=== PATIENT | male | born 1965 ===

== ENCOUNTER 2017-01-21 10:32 | Emergency (ER) | payer SELFPAY ==
--- NOTE | 2017-01-21 14:34 | ED CLINICAL REPORT ---
Clinical Report - Physicians/Mid Levels [facility] [address] [place] [address] 01/21/2017 10:34 Patient: MARK GILL Time Seen: 11:04. Arrived- By private vehicle. Historian- patient. HISTORY OF PRESENT ILLNESS Chief Complaint: BOIL and TENDER AREA. This started about 8 days ago and is still present. It was gradual in onset and has been constant. It is described as painful. It has been located on the right lower extremity. ([facility]. He says that he developed these lesions at that time. He believes some of his [facility] mates have MRSA.). REVIEW OF SYSTEMS No chills, fever, sweats, chest pain or cough. No difficulty breathing, palpitations, abdominal pain, constipation or diarrhea. No nausea, vomiting or urinary problems. All systems otherwise negative, except as recorded above. PAST HISTORY PCP - [facility]. SOCIAL HISTORY Former smoker, end date 1986. 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 FAMILY HISTORY Denies family medical history. ADDITIONAL NOTES The nursing notes have been reviewed. PHYSICAL EXAM Vital Signs: 01/21/2017 10:55 BP: 121/96. HR: 96. RR: 18. O2 saturation: 99%. Temp: 98.6 F. Have been reviewed. Appearance: Alert. Eyes: Pupils equal, round and reactive to light. ENT: Pharynx normal. Neck: Neck supple. CVS: Normal heart rate and rhythm. Heart sounds normal. Respiratory: Breath sounds normal. Abdomen: Nontender. No organomegaly. Skin: Multiple medium abscesses with fluctuance, pointing, drainage and cellulitis to right leg. Extremities: No lower extremity edema. No calf tenderness. LABS, X-RAYS, AND EKG Laboratory Tests: CBC w Diff: (JOVANNI: 01/21/2017 12:00) ( MsgRcvd 01/21/2017 12:20) Final results Test Result Flag Units (Reference) WHITE BLOOD COUNT 11.3 K/uL (4.5-11.5) RED BLOOD COUNT 4.59 M/uL (4.50-5.90) HEMOGLOBIN 12.9 L gm/dL (13.5-17.5) HEMATOCRIT 38.6 L % (41.0-53.0) MEAN CELL VOLUME 84 fL (80-100) MEAN CORPUSCULAR HGB 28 pg (26-34) MEAN CORPUSCULAR HGB CONC 33 g/dL (31-37) RED CELL DISTRIBUTION WIDTH 15.2 H % (11.6-14.8) PLATELET COUNT 343 K/uL (150-400) NEUTROPHIL % 79.7 H % (50-75) LYMPH % 14.3 L % (25-40) MONO % 5.1 % (3-14) EOSINOPHIL % 0.5 % (0-4) BASOPHIL % 0.4 % (0-2) CMP: (JOVANNI: 01/21/2017 12:00) ( MsgRcvd 01/21/2017 12:24) Final results Test Result Flag Units (Reference) GLUCOSE 109 mg/dL (70-110) BUN 8 mg/dL (7-18) CREATININE 0.9 mg/dL (0.6-1.3) Estimated GFR >60 mL/min Estimated GFR- >60 mL/min Note: Persistent reduction over 3 months in eGFR<60 mL/min/1.73 m2 defines CKD. Patients with eGFR values>=60 mL/min/1.73 m2 may also have CKD if evidence ofpersistent proteinuria. Additional information may be foundat www.kidney.org. SODIUM 140 mmol/L (136-145) POTASSIUM 3.9 mmol/L (3.5-5.1) CHLORIDE 106 mmol/L (98-107) CARBON DIOXIDE 23 mmol/L (21-32) CALCIUM 9.2 mg/dL (8.5-10.1) TOTAL PROTEIN 7.3 g/dL (6.4-8.2) ALBUMIN 3.2 L g/dL (3.3-5.0) BILIRUBIN, TOTAL 0.3 mg/dL (0.0-1.0) ALKALINE PHOSPHATASE 89 U/L (46-116) AST (SGOT) 17 U/L (15-37) ALT (SGPT) 30 U/L (12-78) . PROGRESS AND PROCEDURES Incision & Drainage of Abscess: Time-out completed immediately before the procedure. The abscess is located in the right leg. The risks of the procedure, benefits and alternatives were explained. Consent was obtained. Local anesthesia provided using 1% lidocaine with epi. Skin cleansed with Betadine. The abscess was incised with a #11 surgical blade. A moderate amount of pus was drained. Cavity was irrigated with saline and packed with gauze. Sample obtained for cultures. A dressing was applied. Incision & Drainage of Abscess #2: Time-out completed immediately before the procedure. The abscess is located in the right leg. The risks of the procedure, benefits and alternatives were explained. Consent was obtained. Anesthesia provided using 1% lidocaine with epi. Skin cleansed with Betadine. The abscess was incised with a #11 surgical blade. A moderate amount of pus was drained. Cavity was irrigated with saline and packed with gauze. A dressing was applied. Patient/family counseled. Old medical records reviewed. Disposition: Discharged. Condition: stable. CLINICAL IMPRESSION Cellulitis of the right lower leg. Multiple deep abscesses to the right lower extremity with incision and drainage. INSTRUCTIONS Warnings: Further evaluation is necessary. GENERAL WARNINGS: Return or contact your physician immediately if your condition worsens or changes unexpectedly, if not improving as expected, or if other problems arise. Prescription Medications: Bactrim DS 800 mg / 160 mg: take 2 tablets orally every 12 hours for 10 days. No refill. Substitution is permissible. Understanding of the discharge instructions verbalized by patient. Follow-up with: [facility], , , [address], [place] [address] Follow up tomorrow for wound check and packing removal. (Electronically signed by Patricio Fernandez MD 01/21/2017 21:06)
--- NOTE | 2017-01-21 14:34 | ED NURSING NOTES ---
Clinical Report - Nurses [facility] [address] [place] [address] 01/21/2017 10:34 Patient: MARK GILL TRIAGE Triage time 10:56 Jan 21 2017. Acuity: LEVEL 3. Chief Complaint: INJURY TO THE RIGHT LEG. JUWAN COMA SCORE: [place] Coma Scale: 15- eyes open spontaneously (4); best verbal response- oriented x 4 (5); best motor response- obeys commands (6). --11:01 Jaky Carroll R.N. 10:55 01/21/17. BP: 121/96. HR: 96. RR: 18. O2 saturation: 99%. Temp: 98.6 F. Pain level now 05/29. --11:01 Jaky Carroll R.N. Weight: 89.3 kg stated. Height/Length: 72 inches Per Patient. BMI: 26.7. --11:01 Jaky Carroll R.N. Medications None. --10:59 Jaky Carroll R.N. Allergies No Known Drug Allergy. --10:59 Jaky Carroll R.N. History Arrived by private vehicle. Historian: patient. Primary physician (Julián Pharm). This occurred (8 days ago). ( Patient got right calf abscesses [facility] to get them [facility] clinic and they sent him here for treatment.). He has had moderate trouble walking. The patient has been limping when trying to walk. No numbness, tingling, weakness, neck pain or back pain. 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 PAST MEDICAL HX: Tetanus status: unknown. SOCIAL HX: Former smoker, end date 1986. History of drug use: heroin. (Quit a couple weeks ago). No alcohol use. SELF HARM ASSESSMENT: A self harm assessment was performed. The patient answered "no" to the question "Have you recently felt down, depressed, or hopeless?" and "Do you have thoughts of harming or killing yourself?". FALL RISK ASSESSMENT: Fall risk assessment completed. No fall risk identified. NUTRITIONAL RISK ASSESSMENT: The nutritional risk assessment revealed no deficiencies. FUNCTIONAL ASSESSMENT: Functional assessment: no impairments noted. LEARNING NEEDS ASSESSMENT: The learning needs assessment revealed no barriers. ABUSE ASSESSMENT: Abuse assessment: (yes) The patient was asked "Do you feel safe in your home?". SKIN INTEGRITY ASSESSMENT: Skin integrity risk assessment completed. No skin integrity risk identified. --11: Jaky Carroll R.N. PROBLEMS: Chest Pain. Gastroesophageal Reflux Disease. Dental Pain. Fractured Metacarpal. --10:59 Jaky Carroll R.N. ADDITIONAL SURGERIES: Facial repair. --:59 Jaky Carroll R.N. Interventions ID band on patient. --11: Jaky Carroll R.N. PHYSICAL ASSESSMENT Ambulatory to room. GENERAL / NEURO / PSYCH: Oriented X 4. Appears in pain. EXTREMITIES: Capillary refill is less than 2 seconds in the extremities. Extremity pulses are within normal limits. Extremities exhibit normal ROM. Pain with weight bearing. Neuro-vascular status intact to the extremity. Right leg: tenderness, swelling, erythema, ecchymosis and multiple puncture wounds. Limited weight bearing secondary to pain. SKIN: Skin is warm and dry. ( Two open lesions 50 cent piece in size along with redness and swelling around the site.). --11:03 Jaky Carroll R.N. NURSING PROGRESS NOTES The initial plan of care for this patient includes an assessment with efforts to address patient positioning and appropriate ambient lighting. Extremity elevated. Patient gowned. Reassurance given. Call light placed in reach. Side rails up x 1. Bed placed in lowest position. Brakes of bed on. --11:03 Jaky Carroll R.N. 11:23 01/21/2017 Site #1 started via IV in the left wrist with an 20g angiocath, with aseptic technique and good blood return; one attempt. Saline lock flushed with 10 mL saline (Blood not drawing from line purple top collected.). --11:28 Jaky Carroll R.N. DISPOSITION / DISCHARGE 14:43 01/21/2017 Site #1 removed upon discharge. Catheter intact. Pressure dressing applied. --14:43 Jaky Carroll R.N. Departure time: 14:43 Jan 21 2017. Condition at departure: improved. No learning barriers present. Discharge instructions provided and reviewed with the patient. Reviewed warnings. Reviewed medication(s). Treatments reviewed. Reviewed referrals. Patient verbalized understanding. Written instructions provided in Portuguese. The patient was discharged home. He left the Emergency Department ambulatory and via private vehicle. Subsea Engineer driving. --14:43 Jaky Carroll R.N. 14:41 01/21/17. BP: 124/90. HR: 77. RR: 18. O2 saturation: 100%. Temp: 98.6 F. Pain level now 12/27. --14:43 Jaky Carroll R.N. Locked/Released at 01/21/2017 19:11 by Jaky Carroll R.N.
--- NOTE | 2017-01-21 14:34 | ED CLINICAL REPORT ---
Clinical Report - Physicians/Mid Levels [facility] [address] [place] [address] 01/21/2017 10:34 Patient: MARK GILL Time Seen: 11:04. Arrived- By private vehicle. Historian- patient. HISTORY OF PRESENT ILLNESS Chief Complaint: BOIL and TENDER AREA. This started about 8 days ago and is still present. It was gradual in onset and has been constant. It is described as painful. It has been located on the right lower extremity. (Patient was recently incarcerated in residential. He says that he developed these lesions at that time. He believes some of his residential mates have MRSA.). REVIEW OF SYSTEMS No chills, fever, sweats, chest pain or cough. No difficulty breathing, palpitations, abdominal pain, constipation or diarrhea. No nausea, vomiting or urinary problems. All systems otherwise negative, except as recorded above. PAST HISTORY PCP - [facility]. SOCIAL HISTORY Former smoker, end date 1986. 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 FAMILY HISTORY Denies family medical history. ADDITIONAL NOTES The nursing notes have been reviewed. PHYSICAL EXAM Vital Signs: 01/21/2017 10:55 BP: 121/96. HR: 96. RR: 18. O2 saturation: 99%. Temp: 98.6 F. Have been reviewed. Appearance: Alert. Eyes: Pupils equal, round and reactive to light. ENT: Pharynx normal. Neck: Neck supple. CVS: Normal heart rate and rhythm. Heart sounds normal. Respiratory: Breath sounds normal. Abdomen: Nontender. No organomegaly. Skin: Multiple medium abscesses with fluctuance, pointing, drainage and cellulitis to right leg. Extremities: No lower extremity edema. No calf tenderness. LABS, X-RAYS, AND EKG Laboratory Tests: CBC w Diff: (JOVANNI: 01/21/2017 12:00) ( MsgRcvd 01/21/2017 12:20) Final results Test Result Flag Units (Reference) WHITE BLOOD COUNT 11.3 K/uL (4.5-11.5) RED BLOOD COUNT 4.59 M/uL (4.50-5.90) HEMOGLOBIN 12.9 L gm/dL (13.5-17.5) HEMATOCRIT 38.6 L % (41.0-53.0) MEAN CELL VOLUME 84 fL (80-100) MEAN CORPUSCULAR HGB 28 pg (26-34) MEAN CORPUSCULAR HGB CONC 33 g/dL (31-37) RED CELL DISTRIBUTION WIDTH 15.2 H % (11.6-14.8) PLATELET COUNT 343 K/uL (150-400) NEUTROPHIL % 79.7 H % (50-75) LYMPH % 14.3 L % (25-40) MONO % 5.1 % (3-14) EOSINOPHIL % 0.5 % (0-4) BASOPHIL % 0.4 % (0-2) CMP: (JOVANNI: 01/21/2017 12:00) ( MsgRcvd 01/21/2017 12:24) Final results Test Result Flag Units (Reference) GLUCOSE 109 mg/dL (70-110) BUN 8 mg/dL (7-18) CREATININE 0.9 mg/dL (0.6-1.3) Estimated GFR >60 mL/min Estimated GFR- >60 mL/min Note: Persistent reduction over 3 months in eGFR<60 mL/min/1.73 m2 defines CKD. Patients with eGFR values>=60 mL/min/1.73 m2 may also have CKD if evidence ofpersistent proteinuria. Additional information may be foundat www.kidney.org. SODIUM 140 mmol/L (136-145) POTASSIUM 3.9 mmol/L (3.5-5.1) CHLORIDE 106 mmol/L (98-107) CARBON DIOXIDE 23 mmol/L (21-32) CALCIUM 9.2 mg/dL (8.5-10.1) TOTAL PROTEIN 7.3 g/dL (6.4-8.2) ALBUMIN 3.2 L g/dL (3.3-5.0) BILIRUBIN, TOTAL 0.3 mg/dL (0.0-1.0) ALKALINE PHOSPHATASE 89 U/L (46-116) AST (SGOT) 17 U/L (15-37) ALT (SGPT) 30 U/L (12-78) . PROGRESS AND PROCEDURES Incision & Drainage of Abscess: Time-out completed immediately before the procedure. The abscess is located in the right leg. The risks of the procedure, benefits and alternatives were explained. Consent was obtained. Local anesthesia provided using 1% lidocaine with epi. Skin cleansed with Betadine. The abscess was incised with a #11 surgical blade. A moderate amount of pus was drained. Cavity was irrigated with saline and packed with gauze. Sample obtained for cultures. A dressing was applied. Incision & Drainage of Abscess #2: Time-out completed immediately before the procedure. The abscess is located in the right leg. The risks of the procedure, benefits and alternatives were explained. Consent was obtained. Anesthesia provided using 1% lidocaine with epi. Skin cleansed with Betadine. The abscess was incised with a #11 surgical blade. A moderate amount of pus was drained. Cavity was irrigated with saline and packed with gauze. A dressing was applied. Patient/family counseled. Old medical records reviewed. Disposition: Discharged. Condition: stable. CLINICAL IMPRESSION Cellulitis of the right lower leg. Multiple deep abscesses to the right lower extremity with incision and drainage. INSTRUCTIONS Warnings: Further evaluation is necessary. GENERAL WARNINGS: Return or contact your physician immediately if your condition worsens or changes unexpectedly, if not improving as expected, or if other problems arise. Prescription Medications: Bactrim DS 800 mg / 160 mg: take 2 tablets orally every 12 hours for 10 days. No refill. Substitution is permissible. Understanding of the discharge instructions verbalized by patient. Follow-up with: [facility], , , [address] [place], [place] [address] Follow up tomorrow for wound check and packing removal. (Electronically signed by Patricio Fernandez MD 01/21/2017 21:06)
--- NOTE | 2017-01-21 14:34 | ED NURSING NOTES ---
Clinical Report - Nurses [facility] [address] [place] [address] 01/21/2017 10:34 Patient: MARK GILL TRIAGE Triage time 10:56 Jan 21 2017. Acuity: LEVEL 3. Chief Complaint: INJURY TO THE RIGHT LEG. JUWAN COMA SCORE: [place] Coma Scale: 15- eyes open spontaneously (4); best verbal response- oriented x 4 (5); best motor response- obeys commands (6). --11:01 Jaky Carroll R.N. 10:55 01/21/17. BP: 121/96. HR: 96. RR: 18. O2 saturation: 99%. Temp: 98.6 F. Pain level now 05/29. --11:01 Jaky Carroll R.N. Weight: 89.3 kg stated. Height/Length: 72 inches Per Patient. BMI: 26.7. --11:01 Jaky Carroll R.N. Medications None. --10:59 Jaky Carroll R.N. Allergies No Known Drug Allergy. --10:59 Jaky Carroll R.N. History Arrived by private vehicle. Historian: patient. Primary physician (Julián Pharm). This occurred (8 days ago). ( Patient got right calf abscesses [facility] get them [facility] went [facility] he [facility] clinic and they sent him here for treatment.). He has had moderate trouble walking. The patient has been limping when trying to walk. No numbness, tingling, weakness, neck pain or back pain. 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 PAST MEDICAL HX: Tetanus status: unknown. SOCIAL HX: Former smoker, end date 1986. History of drug use: heroin. (Quit a couple weeks ago). No alcohol use. SELF HARM ASSESSMENT: A self harm assessment was performed. The patient answered "no" to the question "Have you recently felt down, depressed, or hopeless?" and "Do you have thoughts of harming or killing yourself?". FALL RISK ASSESSMENT: Fall risk assessment completed. No fall risk identified. NUTRITIONAL RISK ASSESSMENT: The nutritional risk assessment revealed no deficiencies. FUNCTIONAL ASSESSMENT: Functional assessment: no impairments noted. LEARNING NEEDS ASSESSMENT: The learning needs assessment revealed no barriers. ABUSE ASSESSMENT: Abuse assessment: (yes) The patient was asked "Do you feel safe in your home?". SKIN INTEGRITY ASSESSMENT: Skin integrity risk assessment completed. No skin integrity risk identified. --11: Jaky Carroll R.N. PROBLEMS: Chest Pain. Gastroesophageal Reflux Disease. Dental Pain. Fractured Metacarpal. --10:59 Jaky aCrroll R.N. ADDITIONAL SURGERIES: Facial repair. --:59 Jaky Carroll R.N. Interventions ID band on patient. --11: Jaky Carroll R.N. PHYSICAL ASSESSMENT Ambulatory to room. GENERAL / NEURO / PSYCH: Oriented X 4. Appears in pain. EXTREMITIES: Capillary refill is less than 2 seconds in the extremities. Extremity pulses are within normal limits. Extremities exhibit normal ROM. Pain with weight bearing. Neuro-vascular status intact to the extremity. Right leg: tenderness, swelling, erythema, ecchymosis and multiple puncture wounds. Limited weight bearing secondary to pain. SKIN: Skin is warm and dry. ( Two open lesions 50 cent piece in size along with redness and swelling around the site.). --11:03 Jaky Carroll R.N. NURSING PROGRESS NOTES The initial plan of care for this patient includes an assessment with efforts to address patient positioning and appropriate ambient lighting. Extremity elevated. Patient gowned. Reassurance given. Call light placed in reach. Side rails up x 1. Bed placed in lowest position. Brakes of bed on. --11:03 Jaky Carroll R.N. 11:23 01/21/2017 Site #1 started via IV in the left wrist with an 20g angiocath, with aseptic technique and good blood return; one attempt. Saline lock flushed with 10 mL saline (Blood not drawing from line purple top collected.). --11:28 Jaky Carroll R.N. DISPOSITION / DISCHARGE 14:43 01/21/2017 Site #1 removed upon discharge. Catheter intact. Pressure dressing applied. --14:43 Jaky Carroll R.N. Departure time: 14:43 Jan 21 2017. Condition at departure: improved. No learning barriers present. Discharge instructions provided and reviewed with the patient. Reviewed warnings. Reviewed medication(s). Treatments reviewed. Reviewed referrals. Patient verbalized understanding. Written instructions provided in Kiswahili. The patient was discharged home. He left the Emergency Department ambulatory and via private vehicle. Receiving Manager driving. --14:43 Jaky Carroll R.N. 14:41 01/21/17. BP: 124/90. HR: 77. RR: 18. O2 saturation: 100%. Temp: 98.6 F. Pain level now 12/27. --14:43 Jaky Carroll R.N. Locked/Released at 01/21/2017 19:11 by Jaky Carroll R.N.
--- NOTE | 2017-01-21 14:34 | ED ORDER SUMMARY ---
..... Patient: MARK GILL OrderSheet [facility] VisitID: [id number] [place] [address] 51y, M Registration Date/Time: 01/21/2017 ORDER SHEET Weight: 89.3 kg (stated) Allergies: No Known Drug Allergy GENERAL ORDERS: Culture, Wound Deep (Leg) (abcess) Urgent (11:37 01/21/2017 Pradeep CAAL) (Ack 11:44 Arline) (13:39 RKseverino) CBC w Diff Urgent (:01/21/2017 Pradeep CAAL) (Ack 11:44 RKseverino) (13:39 RKaruga) CMP Urgent (:01/21/2017 Pradeep CAAL) (Ack 11:44 RKseverino) (13:39 RKaruga) MEDICATION ORDERS: IV FLUIDS: ORDER SHEET NOTES: [Electronically signed by Jaky Carroll R.N. (19:11 01/21/2017)] [Electronically signed by Patricio Fernandez MD (21:06 01/21/2017)] [Electronically locked/signed by Jaky Carroll R.N. (19:11 01/21/2017)]
--- NOTE | 2017-01-21 14:34 | ED ORDER SUMMARY ---
..... Patient: MARK GILL OrderSheet [facility] VisitID: [id number] [place] [address] 51y, M Registration Date/Time: 01/21/2017 ORDER SHEET Weight: 89.3 kg (stated) Allergies: No Known Drug Allergy GENERAL ORDERS: Culture, Wound Deep (Leg) (abcess) Urgent (11:37 01/21/2017 Pradeep CAAL) (Ack 11:44 Arline) (13:39 RKseverino) CBC w Diff Urgent (:01/21/2017 Pradeep CAAL) (Ack 11:44 RKseverino) (13:39 RKaruga) CMP Urgent (:01/21/2017 Pradeep CAAL) (Ack 11:44 RKseverino) (13:39 RKaruga) MEDICATION ORDERS: IV FLUIDS: ORDER SHEET NOTES: [Electronically signed by Jaky Carroll R.N. (19:11 01/21/2017)] [Electronically signed by Patricio Fernandez MD (21:06 01/21/2017)] [Electronically locked/signed by Jaky Carroll R.N. (19:11 01/21/2017)]
--- NOTE | 2017-01-21 21:06 | ED DISCHARGE INSTRUCTIONS ---
Patient: MARK GILL General Instructions [facility] VisitID: [id number] [place] [address] 51y, M Registration Date/Time: 01/21/2017 Cellulitis of the right lower leg. Multiple deep abscesses to the right lower extremity with incision and drainage. INSTRUCTIONS Warnings: Further evaluation is necessary. GENERAL WARNINGS: Return or contact your physician immediately if your condition worsens or changes unexpectedly, if not improving as expected, or if other problems arise. Prescription Medications: Bactrim DS 800 mg / 160 mg: take 2 tablets orally every 12 hours for 10 days. No refill. Substitution is permissible. Understanding of the discharge instructions verbalized by patient. Follow-up with: [facility], , , [address], [place] [id number] Follow up tomorrow for wound check and packing removal. ADDITIONAL INFORMATION Cellulitis You have an infection of the skin known as cellulitis. This usually starts with a scrape, cut, insect bite, blister or other opening in the skin which becomes infected. This is a serious condition. It must be watched closely to be sure the infection is not spreading. With antibiotic treatment, the size of the red area will gradually shrink in size until the skin returns to normal. This will take 7-10 days. The red area should never increase in size once the antibiotic medicine has been started. Occasionally, an infection will be resistant to one antibiotic and another one will have to be used. Home Care: 1) Limit the use of the affected part, since excess movement can cause the infection to spread. 2) If the infection is on your leg, walk as little as possible during the first few days of the treatment. Keep your leg elevated while sitting. This will reduce swelling. 3) Take all of the antibiotic medicine exactly as directed until it is gone. Be careful not to miss any doses, especially during the first seven days. Follow Up with your doctor or this facility as directed. Check the infected area daily for the warning signs listed below. Get Prompt Medical Attention if any of the following occur: -- Spreading area of redness -- Increasing swelling or pain -- Appearance of pus or drainage -- Fever over 100.4 F (38.0 C) oral, or over 101.4 F (38.6 C) rectal, after two days on antibiotics Abscess [Incision & Drainage] An abscess (sometimes called a boil) occurs when bacteria get trapped under the skin and begin to grow. Pus forms inside the abscess as the body responds to the bacteria. An abscess can occur with an insect bite, ingrown hair, blocked oil gland, pimple, cyst, or puncture wound. Treatment of your abscess has required an incision to drain the pus. If the abscess pocket was large, a gauze packing may have been inserted. This will need to be removed and possibly replaced on your next visit. Antibiotics are not required in the treatment of a simple abscess, unless the infection is spreading into the skin around the wound (known as cellulitis). Healing of the wound will take about one to two weeks depending on the size of the abscess. Healthy tissue will grow from the bottom and sides of the opening until it seals over. Home Care: The wound may drain for the first two days. Cover the wound with a clean dry dressing. If the dressing becomes soaked with blood or pus, change it. If a gauze packing was placed inside the abscess cavity, you may be advised to remove it yourself. You may do this in the shower. Once the packing is removed, you should wash the area in the shower or bath 3 to 4 times a day, until the skin opening has closed. If you were prescribed antibiotics, take them as directed until they are all gone. You may use acetaminophen (Tylenol) or ibuprofen (Motrin, Advil) to control pain, unless another pain medicine was prescribed. [ NOTE: If you have liver disease or ever had a stomach ulcer, talk with your doctor before using these medicines.] Follow Up with your doctor as advised by our staff. If a gauze packing was inserted in your wound, it should be removed in 1-2 days. Check your wound every day for the signs of worsening infection listed below. Get Prompt Medical Attention if any of the following occur: Increasing redness or swelling Red streaks in the skin leading away from the wound Increasing local pain or swelling Continued pus draining from the wound two days after treatment Fever of 100.4F (38C) or higher, or as directed by your healthcare provider Sulfamethoxazole, Trimethoprim Oral tablet What is this medicine? SULFAMETHOXAZOLE; TRIMETHOPRIM or SMX-TMP (suhl fuh meth OK tiffanie zohl; trye METH oh prim) is a combination of a sulfonamide antibiotic and a second antibiotic, trimethoprim. It is used to treat or prevent certain kinds of bacterial infections. It will not work for colds, flu, or other viral infections. How should I use this medicine? Take this medicine by mouth with a full glass of water. Follow the directions on the prescription label. Take your medicine at regular intervals. Do not take it more often than directed. Do not skip doses or stop your medicine early. Talk to your concrete mixing plant superintendent regarding the use of this medicine in children. Special care may be needed. This medicine has been used in children as young as 2 months of age. What side effects may I notice from receiving this medicine? Side effects that you should report to your doctor or health adult care manager as soon as possible: allergic reactions like skin rash or hives, swelling of the face, lips, or tongue breathing problems fever or chills, sore throat irregular heartbeat, chest pain joint or muscle pain pain or difficulty passing urine red pinpoint spots on skin redness, blistering, peeling or loosening of the skin, including inside the mouth unusual bleeding or bruising unusually weak or tired yellowing of the eyes or skin Side effects that usually do not require medical attention (report to your doctor or health adult care manager if they continue or are bothersome): diarrhea dizziness headache loss of appetite nausea, vomiting nervousness What may interact with this medicine? Do not take this medicine with any of the following medications: aminobenzoate potassium dofetilide metronidazole This medicine may also interact with the following medications: EVERARDO inhibitors like benazepril, enalapril, lisinopril, and ramipril cyclosporine digoxin diuretics indomethacin medicines for diabetes methenamine methotrexate phenytoin potassium supplements pyrimethamine sulfinpyrazone tricyclic antidepressants warfarin What if I miss a dose? If you miss a dose, take it as soon as you can. If it is almost time for your next dose, take only that dose. Do not take double or extra doses. Where should I keep my medicine? Keep out of the reach of children. Store at room temperature between 20 to 25 degrees C (68 to 77 degrees F). Protect from light. Throw away any unused medicine after the expiration date. What should I tell my health care provider before I take this medicine? They need to know if you have any of these conditions: anemia asthma being treated with anticonvulsants if you frequently drink alcohol containing drinks kidney disease liver disease low level of folic acid or [id number] dehydrogenase poor nutrition or malabsorption porphyria severe allergies thyroid disorder an unusual or allergic reaction to sulfamethoxazole, trimethoprim, sulfa drugs, other medicines, foods, dyes, or preservatives or trying to get breast-feeding What should I watch for while using this medicine? Tell your doctor or health adult care manager if your symptoms do not improve. Drink several glasses of water a day to reduce the risk of kidney problems. Do not treat diarrhea with over the counter products. Contact your doctor if you have diarrhea that lasts more than 2 days or if it is severe and watery. This medicine can make you more sensitive to the sun. Keep out of the sun. If you cannot avoid being in the sun, wear protective clothing and use a sunscreen. Do not use sun lamps or tanning beds/booths. You have been given the following additional information: Cellulitis Abscess, Incision And Drainage Sulfamethoxazole, Trimethoprim Oral tablet (Electronically signed by Patricio Fernandez MD 01/21/2017 21:06)
--- NOTE | 2017-01-21 21:06 | ED MED RECONCILIATION SUMMARY ---
Patient: MARK GILL Medication Reconciliation Report [facility] VisitID: [id number] [address] [place] [address] 51y, M Registration Date/Time: 01/21/2017 Weight: 89.3 kg Height/Length: 72 in. BMI: 26.7 ALLERGIES: No Known Drug Allergy The patient's Home Medications are listed below: NONE. The source(s) of the original Home Medication information: Not obtained. The following Medications were given to the patient in the Emergency Department: None. The following Medications were prescribed to the patient: Bactrim DS 800 mg / 160 mg: take 2 tablets orally every 12 hours for 10 days. No refill. Substitution is permissible. -- Patricio Fernandez MD
--- NOTE | 2017-01-21 21:06 | ED MAR SUMMARY ---
..... Medication Administration Record [facility] [address] [place], [place] [id number] Patient: MARK GILL Visit ID: [id number] 51y, M Weight: 89.3 kg Height/Length: 72 in BMI: 26.7 ALLERGIES: No Known Drug Allergy
--- NOTE | 2017-01-21 21:06 | ED DISCHARGE INSTRUCTIONS ---
Patient: MARK GILL General Instructions [facility] VisitID: [id number] [place] [address] 51y, M Registration Date/Time: 01/21/2017 Cellulitis of the right lower leg. Multiple deep abscesses to the right lower extremity with incision and drainage. INSTRUCTIONS Warnings: Further evaluation is necessary. GENERAL WARNINGS: Return or contact your physician immediately if your condition worsens or changes unexpectedly, if not improving as expected, or if other problems arise. Prescription Medications: Bactrim DS 800 mg / 160 mg: take 2 tablets orally every 12 hours for 10 days. No refill. Substitution is permissible. Understanding of the discharge instructions verbalized by patient. Follow-up with: [facility], , , [address], [place] [address] Follow up tomorrow for wound check and packing removal. ADDITIONAL INFORMATION Cellulitis You have an infection of the skin known as cellulitis. This usually starts with a scrape, cut, insect bite, blister or other opening in the skin which becomes infected. This is a serious condition. It must be watched closely to be sure the infection is not spreading. With antibiotic treatment, the size of the red area will gradually shrink in size until the skin returns to normal. This will take 7-10 days. The red area should never increase in size once the antibiotic medicine has been started. Occasionally, an infection will be resistant to one antibiotic and another one will have to be used. Home Care: 1) Limit the use of the affected part, since excess movement can cause the infection to spread. 2) If the infection is on your leg, walk as little as possible during the first few days of the treatment. Keep your leg elevated while sitting. This will reduce swelling. 3) Take all of the antibiotic medicine exactly as directed until it is gone. Be careful not to miss any doses, especially during the first seven days. Follow Up with your doctor or this facility as directed. Check the infected area daily for the warning signs listed below. Get Prompt Medical Attention if any of the following occur: -- Spreading area of redness -- Increasing swelling or pain -- Appearance of pus or drainage -- Fever over 100.4 F (38.0 C) oral, or over 101.4 F (38.6 C) rectal, after two days on antibiotics Abscess [Incision & Drainage] An abscess (sometimes called a boil) occurs when bacteria get trapped under the skin and begin to grow. Pus forms inside the abscess as the body responds to the bacteria. An abscess can occur with an insect bite, ingrown hair, blocked oil gland, pimple, cyst, or puncture wound. Treatment of your abscess has required an incision to drain the pus. If the abscess pocket was large, a gauze packing may have been inserted. This will need to be removed and possibly replaced on your next visit. Antibiotics are not required in the treatment of a simple abscess, unless the infection is spreading into the skin around the wound (known as cellulitis). Healing of the wound will take about one to two weeks depending on the size of the abscess. Healthy tissue will grow from the bottom and sides of the opening until it seals over. Home Care: The wound may drain for the first two days. Cover the wound with a clean dry dressing. If the dressing becomes soaked with blood or pus, change it. If a gauze packing was placed inside the abscess cavity, you may be advised to remove it yourself. You may do this in the shower. Once the packing is removed, you should wash the area in the shower or bath 3 to 4 times a day, until the skin opening has closed. If you were prescribed antibiotics, take them as directed until they are all gone. You may use acetaminophen (Tylenol) or ibuprofen (Motrin, Advil) to control pain, unless another pain medicine was prescribed. [ NOTE: If you have liver disease or ever had a stomach ulcer, talk with your doctor before using these medicines.] Follow Up with your doctor as advised by our staff. If a gauze packing was inserted in your wound, it should be removed in 1-2 days. Check your wound every day for the signs of worsening infection listed below. Get Prompt Medical Attention if any of the following occur: Increasing redness or swelling Red streaks in the skin leading away from the wound Increasing local pain or swelling Continued pus draining from the wound two days after treatment Fever of 100.4F (38C) or higher, or as directed by your healthcare provider Sulfamethoxazole, Trimethoprim Oral tablet What is this medicine? SULFAMETHOXAZOLE; TRIMETHOPRIM or SMX-TMP (suhl fuh meth OK tiffanie zohl; trye METH oh prim) is a combination of a sulfonamide antibiotic and a second antibiotic, trimethoprim. It is used to treat or prevent certain kinds of bacterial infections. It will not work for colds, flu, or other viral infections. How should I use this medicine? Take this medicine by mouth with a full glass of water. Follow the directions on the prescription label. Take your medicine at regular intervals. Do not take it more often than directed. Do not skip doses or stop your medicine early. Talk to your ophthalmic technician apprentice regarding the use of this medicine in children. Special care may be needed. This medicine has been used in children as young as 2 months of age. What side effects may I notice from receiving this medicine? Side effects that you should report to your doctor or health property caretaker as soon as possible: allergic reactions like skin rash or hives, swelling of the face, lips, or tongue breathing problems fever or chills, sore throat irregular heartbeat, chest pain joint or muscle pain pain or difficulty passing urine red pinpoint spots on skin redness, blistering, peeling or loosening of the skin, including inside the mouth unusual bleeding or bruising unusually weak or tired yellowing of the eyes or skin Side effects that usually do not require medical attention (report to your doctor or health property caretaker if they continue or are bothersome): diarrhea dizziness headache loss of appetite nausea, vomiting nervousness What may interact with this medicine? Do not take this medicine with any of the following medications: aminobenzoate potassium dofetilide metronidazole This medicine may also interact with the following medications: EVERARDO inhibitors like benazepril, enalapril, lisinopril, and ramipril cyclosporine digoxin diuretics indomethacin medicines for diabetes methenamine methotrexate phenytoin potassium supplements pyrimethamine sulfinpyrazone tricyclic antidepressants warfarin What if I miss a dose? If you miss a dose, take it as soon as you can. If it is almost time for your next dose, take only that dose. Do not take double or extra doses. Where should I keep my medicine? Keep out of the reach of children. Store at room temperature between 20 to 25 degrees C (68 to 77 degrees F). Protect from light. Throw away any unused medicine after the expiration date. What should I tell my health care provider before I take this medicine? They need to know if you have any of these conditions: anemia asthma being treated with anticonvulsants if you frequently drink alcohol containing drinks kidney disease liver disease low level of folic acid or [id number] dehydrogenase poor nutrition or malabsorption porphyria severe allergies thyroid disorder an unusual or allergic reaction to sulfamethoxazole, trimethoprim, sulfa drugs, other medicines, foods, dyes, or preservatives or trying to get breast-feeding What should I watch for while using this medicine? Tell your doctor or health property caretaker if your symptoms do not improve. Drink several glasses of water a day to reduce the risk of kidney problems. Do not treat diarrhea with over the counter products. Contact your doctor if you have diarrhea that lasts more than 2 days or if it is severe and watery. This medicine can make you more sensitive to the sun. Keep out of the sun. If you cannot avoid being in the sun, wear protective clothing and use a sunscreen. Do not use sun lamps or tanning beds/booths. You have been given the following additional information: Cellulitis Abscess, Incision And Drainage Sulfamethoxazole, Trimethoprim Oral tablet (Electronically signed by Patricio Fernandez MD 01/21/2017 21:06)
--- NOTE | 2017-01-21 21:06 | ED MAR SUMMARY ---
..... Medication Administration Record [facility] [address] [place], [place] [id number] Patient: MARK GILL Visit ID: [id number] 51y, M Weight: 89.3 kg Height/Length: 72 in BMI: 26.7 ALLERGIES: No Known Drug Allergy
--- NOTE | 2017-01-21 21:06 | ED MED RECONCILIATION SUMMARY ---
Patient: MARK GILL Medication Reconciliation Report [facility] VisitID: [id number] [address] [place] [address] 51y, M Registration Date/Time: 01/21/2017 Weight: 89.3 kg Height/Length: 72 in. BMI: 26.7 ALLERGIES: No Known Drug Allergy The patient's Home Medications are listed below: NONE. The source(s) of the original Home Medication information: Not obtained. The following Medications were given to the patient in the Emergency Department: None. The following Medications were prescribed to the patient: Bactrim DS 800 mg / 160 mg: take 2 tablets orally every 12 hours for 10 days. No refill. Substitution is permissible. -- Patricio Fernandez MD
== END 2017-01-21 14:45 | disposition home or self-care (01) ==
LOC: ED SRH 10:32
DX: L03.115 Cellulitis of right lower limb (principal); L02.415 Cutaneous abscess of right lower limb; Z87.891 Personal history of nicotine dependence
CPT/HCPCS: 90070; 90100; 90131; 90309; 90470; 91672; 95059